=== PATIENT | female | born 2000 | race Caucasian/White ===

== ENCOUNTER 2025-05-18 23:36 | Emergency (ER) | payer SELFPAY ==
[~2025-05-18] VITALS: Ht 165.1 cm; Wt 59.0 kg
[2025-05-18 23:38] VITALS: TEMP 98; O2SAT 98
[2025-05-19] MEDS: DIPHENHYDRAMINE 50MG/ML VIAL IM ONE (01:31)
[2025-05-19] MEDS: HALOPERIDOL LACTATE 5MG/ML VIAL IM ONE (01:31)
[2025-05-19] MEDS: LORAZEPAM 2MG/ML UD SYRINGE IM NR (01:32)
[2025-05-19 01:38] LABS: BASOPHILS % 0.6 % (0.0-2.0); EOSINOPHILS % 0.9 % (0.0-5.0); HEMATOCRIT. 46.0 % (36.0-48.0); HEMOGLOBIN. 14.8 g/dL (12.0-16.0); LYMPHOCYTES % 31.4 % (20.0-50.0); MEAN PLATELET VOLUME 10.5 fl (7.4-10.4); MONOCYTES % 4.9 % (2.0-8.0); NEUTROPHILS % 62.2 % (40.0-76.0); PLATELET 103 x1000/uL (130-400); RED BLOOD CELL COUNT 4.80 mill/uL (4.2-5.4); RED CELL DISTRIBUTION WIDTH 13.8 % (11.6-14.6)
[2025-05-19 01:52] LABS: CREATININE 0.7 mg/dL (0.6-1.0)
[2025-05-19 01:53] LABS: UREA NITROGEN BLOOD 8 mg/dL (9-23)
[2025-05-19 01:54] LABS: ASPARTATE AMINOTRANSFERASE 33 IU/L (<34)
[2025-05-19 01:55] LABS: BILIRUBIN DIRECT 0.1 mg/dL (<=3.0); BILIRUBIN TOTAL 0.4 mg/dL (0.1-1.0); PROTEIN TOTAL 8.2 g/dL (6.0-8.3)
[2025-05-19 02:02] LABS: ETHANOL BLOOD 300 mg/dL (<10)
[2025-05-19 02:23] LABS: HCG SCREEN NEGATIVE
[2025-05-19 03:55] VITALS: BP 98/59; PULSE 83; RESP 17; O2SAT 99
[2025-05-19 04:32] LABS: *AMPHETAMINES SCREEN URINE NEGATIVE (NEGATIVE); *BENZODIAZEPINES SCREEN URINE NEGATIVE (NEGATIVE)
[2025-05-19 04:33] LABS: *BARBITURATES SCREEN URINE NEGATIVE (NEGATIVE); *COCAINE SCREEN URINE NEGATIVE (NEGATIVE); CANNABINOID URINE SCREEN NEGATIVE (NEGATIVE); ECSTASY MDMA SCREEN URINE NEGATIVE (NEGATIVE); METHADONE URINE SCREEN NEGATIVE (NEGATIVE); OPIATES URINE SCREEN NEGATIVE (NEGATIVE); PHENCYCLIDINE URINE SCREEN NEGATIVE (NEGATIVE)
== END 2025-05-19 06:29 | disposition home or self-care (01) ==
LOC: ER 23:36
DX: F10.129 Alcohol abuse with intoxication, unspecified (principal); R45.1 Restlessness and agitation; Z78.1 Physical restraint status; Z79.899 Other long term (current) drug therapy; Y90.9 Presence of alcohol in blood, level not specified
CPT/HCPCS: 99291; 80076; 80305; 80048; 80307; 80329; 80320; 84703; 85025; 36415; 96372; J1200; J1630; J2060; Z7610; G0480